=== PATIENT | male | born 1985 | race Caucasian/White ===

== ENCOUNTER 2021-12-12 11:41 | Emergency (ER) | payer SELFPAY ==
[~2021-12-12] VITALS: Ht 167.6 cm; Wt 78.0 kg
[2021-12-12 11:58] VITALS: BP 121/74
--- NOTE | 2021-12-12 12:04 | NUR ---
PATIENT AMBULATED TO BED 5.
--- NOTE | 2021-12-12 12:11 | NUR ---
36Y MALE BIB SELF DUE TO RASH LIKE ALLERGIC REACTION ON L UPPER BICEP S/P BEE STONG X1 WEEK AGO. PT DENIES ANY CP, SOB, FEVER/CHILLS, N/V. PER PATIENT THE RASH STARTED AFTER THE BEE STING. RASH IS LOCALIZED AROUND STING. RASH IS RED AND SLIGHLTLY ELEVATED UPON ASSESSMENT. PT A&OX4, EQUAL CHEST RISE AND FALL. NO SIGNS OF DISTRESS NOTED. PMHX: VERTIGO, LEUKEMIA (16 YRS) NKA
--- NOTE | 2021-12-12 12:13 | NUR ---
DR. BARAJAS BEDSIDE EVALUATING PT
[2021-12-12] MEDS ORDERED: PRED20TA5 PO (12:22)
[2021-12-12] MEDS ORDERED: CEPH-588 PO (12:22)
[2021-12-12 12:36] VITALS: BP 121/74
--- NOTE | 2021-12-12 12:37 | NUR ---
Patient discharged with v/s stable. Written and verbal after care instructions given and explained. Patient alert, oriented and verbalized understanding of instructions. Ambulatory with steady gait. All questions addressed prior to discharge. ID band removed. Patient advised to follow up with PMD. Rx of KEFLEX AND PREDNISONE given. Patient educated on indication of medication including possible reaction and side effects. Opportunity to ask questions provided and answered.
== END 2021-12-12 12:36 | disposition home or self-care (01) ==
LOC: MED 11:41
DX: R21 Rash and other nonspecific skin eruption (principal); L03.114 Cellulitis of left upper limb; Z85.6 Personal history of leukemia
CPT/HCPCS: 99283